=== PATIENT | male | born 1975 | race Caucasian/White ===

== ENCOUNTER 2017-12-26 19:53 | Emergency (ER) | payer OTHER ==
[~2017-12-26] VITALS: Ht 167.6 cm; Wt 83.9 kg
[2017-12-26 20:13] VITALS: Ht 167.6 cm; Wt 83.9 kg
[2017-12-26 21:53] VITALS: BP 136/72
== END 2017-12-26 21:53 | disposition home or self-care (01) ==
LOC: ED 19:53
DX: L03.031 Cellulitis of right toe (principal)
CPT/HCPCS: J1885